=== PATIENT | female | born 1970 | race Caucasian/White ===

== ENCOUNTER → 2022-05-09 | Outpatient (CLI) | payer OTHER ==
[~2022-05-09] MED LIST: AMOX875T2 PO; METF-838 PO; STEG15TA PO; VARE1TAB2 PO
== END ==
LOC: M LABSMTC 10:10
PROVIDERS: ATTEND Anesthesiology
DX: Z01.818 Encounter for other preprocedural examination (principal)

== ENCOUNTER 2022-05-14 07:42 | Day surgery (SDC) | payer OTHER ==
[~2022-05-14] VITALS: Ht 157.5 cm; Wt 68.9 kg
[~2022-05-14 07:42] MED LIST changes: +AMPICILLIN SOD/SULBACTAM SOD 3 GM in D5W MINI-BAG PLUS 100 ML IV ONE
[2022-05-14] MEDS ORDERED: LR 1,000 ML IV SCH ×2 (07:55→11:20)
[2022-05-14] MEDS ORDERED: LIDOCAINE 2% W/ EPINEPHRINE 1.7 ML DENTAL INJ As Ordered ONE (09:36)
[2022-05-14] MEDS ORDERED: CHLORHEXIDINE GLUCONATE 0.12 % 15ML UDC (PERIDEX ORAL RINSE) As Ordered ONE (09:36)
[2022-05-14] MEDS ORDERED: BUPIVACAINE LIPOSOME/PF 1.3% 20ML VIAL (13.3MG/ML)(EXPAREL) As Ordered ONE (09:36)
[2022-05-14] MEDS ORDERED: propofoL 200 MG/20 ML VIAL As Ordered ONE (09:43)
[2022-05-14] MEDS ORDERED: ROCURONIUM BROMIDE 50MG/5ML VIAL As Ordered ONE (09:43)
[2022-05-14] MEDS ORDERED: MIDAZOLAM INJ 2MG/2ML VIAL As Ordered ONE (09:44)
[2022-05-14] MEDS ORDERED: fentaNYL 100 MCG/2 ML INJECTION As Ordered ONE ×2 (09:44→10:06)
[2022-05-14] MEDS ORDERED: HYDROMORPHONE HCL 0.5 MG/ 0.5 ML SYRINGE IV PRN (11:20)
[2022-05-14] MEDS ORDERED: NORCO, ANEXSIA 5/325MG TABLET (HYDROcodone/ACETAMINOPHEN) PO PRN (11:20)
[2022-05-14] MEDS ORDERED: fentaNYL 100 MCG/2 ML INJECTION IV PRN (11:20)
[2022-05-14] MEDS ORDERED: ONDANSETRON 4MG 2ML VIAL IV PRN (11:20)
[2022-05-14] MEDS ORDERED: MEPERIDINE 25 MG/ML 1ML VIAL IV PRN (11:20)
[2022-05-14 13:00] VITALS: BP 105/58
== END 2022-05-14 13:05 | disposition home or self-care (01) ==
LOC: M SDC 07:42 → EDUNIT# 10:00 → M SDC 13:05
PROVIDERS: ATTEND Dentist
DX: K02.9 Dental caries, unspecified (principal); K04.7 Periapical abscess without sinus; F40.232 Fear of other medical care; E11.9 Type 2 diabetes mellitus without complications; Z79.899 Other long term (current) drug therapy; Z79.84 Long term (current) use of oral hypoglycemic drugs; Z79.2 Long term (current) use of antibiotics; F17.210 Nicotine dependence, cigarettes, uncomplicated; Z91.040 Latex allergy status; Q30.2 Fissured, notched and cleft nose; M26.79 Other specified alveolar anomalies
CPT/HCPCS: 88300; C9290; D7140; D7210; D9223; J1100; J2250; J3010